=== PATIENT | female | born 1980 | race Caucasian/White ===

== ENCOUNTER 2017-06-22 19:31 | Emergency (ER) | payer OTHER ==
[2017-06-22] MEDS: FAMOTIDINE 20 MG INJ IV (21:39)
[2017-06-22] MEDS: morphine 2 MG INJ IV (21:39)
[2017-06-22] MEDS: ONDANSETRON 4 MG INJ IV (21:39)
[2017-06-22] MEDS: SOD CHLORIDE 0.9% 1,000 ML IV (21:40)
[2017-06-22 21:45] LABS: ADD MAN DIFF? NO
[2017-06-22 21:49] LABS: BASOPHIL # 0.1 10^3/ul (0.0-0.1); BASOPHILS % 0.6 % (0.0-2.0); EOSINOPHILS # 0.3 10^3/ul (0.0-0.5); EOSINOPHILS % 1.7 % (0.0-7.0); HEMATOCRIT 39.7 % (37.0-47.0); HEMOGLOBIN 13.8 g/dl (12.0-16.0); LYMPHOCYTES # 3.2 10^3/ul (0.8-2.9); LYMPHOCYTES % 21.5 % (15.0-51.0); MEAN CORPUSCULAR HEMOGLOBIN 29.8 pg (29.0-33.0); MEAN CORPUSCULAR HGB CONC 34.8 g/dl (32.0-37.0); MEAN CORPUSCULAR VOLUME 85.7 fl (82.0-101.0); MEAN PLATELET VOLUME 9.9 fl (7.4-10.4); MONOCYTE # 0.8 10^3/ul (0.3-0.9); MONOCYTES % 5.3 % (0.0-11.0); NEUTROPHIL # 10.3 10^3/ul (1.6-7.5); NEUTROPHILS % 70.6 % (39.0-77.0); PLATELET COUNT 394 10^3/UL (140-415); RED BLOOD COUNT 4.63 10^6/ul (4.20-5.40); RED CELL DISTRIBUTION WIDTH 12.6 % (11.5-14.5)
[2017-06-22 21:49] LABS: WHITE BLOOD COUNT 14.6 10^3/ul (4.8-10.8)
[2017-06-22 21:52] LABS: URINE BLOOD (Dip) POC 2+ (NEGATIVE); URINE GLUCOSE (Dip) POC Negative (NEGATIVE); URINE KETONES (Dip) POC Negative (NEGATIVE); URINE LEUKOCYTE EST (Dip) POC Negative (NEGATIVE); URINE NITRITE (Dip) POC Negative (NEGATIVE); URINE TOTAL PROTEIN POC Trace (NEGATIVE)
[2017-06-22 22:10] LABS: ALANINE AMINOTRANSFERASE 27 IU/L (13-69); ALBUMIN 4.4 g/dl (3.3-4.9); ALBUMIN/GLOBULIN RATIO 1.41; ALKALINE PHOSPHATASE 56 IU/L (42-121); ANION GAP 16 (8-16); ASPARTATE AMINO TRANSFERASE 17 IU/L (15-46); BILIRUBIN,INDIRECT 0.3 mg/dl (0-1.1); BILIRUBIN,TOTAL 0.3 mg/dl (0.2-1.3); BLOOD UREA NITROGEN 12 mg/dl (7-20); CALCIUM 9.6 mg/dl (8.4-10.2); CARBON DIOXIDE 28 mmol/L (21-31); CHLORIDE 103 mmol/L (97-110); CREATININE 0.69 mg/dl (0.44-1.00); GLUCOSE 89 mg/dl (70-220); LIPASE 96 U/L (23-300); POTASSIUM 3.5 mmol/L (3.5-5.1); SODIUM 143 mmol/L (135-144); TOTAL PROTEIN 7.5 g/dl (6.1-8.1)
[2017-06-22] MEDS: KETOROLAC 30 MG INJ IV (23:03)
== END 2017-06-22 23:39 | disposition home or self-care (01) ==
LOC: FTE 19:31
DX: K80.70 Calculus of gallbladder and bile duct without cholecystitis without obstruction (principal)
CPT/HCPCS: 36415; 76705; 80053; 81003; 81025; 83690; 85025; 96374; 96375; 99285-25

== ENCOUNTER 2017-10-02 06:08 | Day surgery (SDC) | payer OTHER ==
[2017-10-02] MEDS ORDERED: DEXAMETHASONE 4 MG/ML 1 ML INJ (06:21)
[2017-10-02] MEDS ORDERED: FENTAnyl 50 MCG/ML VIAL ×2 (06:21→09:12)
[2017-10-02] MEDS ORDERED: GLYCOPYRROLATE 0.4 MG INJ (06:21)
[2017-10-02] MEDS ORDERED: NEOSTIGMINE 3 MG/3 ML SYRINGE (06:21)
[2017-10-02] MEDS ORDERED: PROPOFOL 20 ML (06:21)
[2017-10-02] MEDS ORDERED: LIDOCAINE 2% (SDV) 5 ML INJ (06:21)
[2017-10-02] MEDS ORDERED: ROCURONIUM 50 MG INJ (06:21)
[2017-10-02] MEDS ORDERED: MIDAZOLAM 1 MG/ML 2 ML INJ (06:21)
[2017-10-02] MEDS ORDERED: ONDANSETRON 4 MG INJ (06:22)
[2017-10-02] MEDS ORDERED: NALOXONE (0.4 MG/ML) INJ IV (06:30)
[2017-10-02] MEDS ORDERED: BUPIVACAINE 0.25% (MPF) 30 ML INJ (07:10)
[2017-10-02] MEDS: BUPIVACAINE 0.5%/EPI (SDV) 30 ML INJ (08:08)
[2017-10-02] MEDS ORDERED: ONDANSETRON 4 MG INJ IV (09:00)
[2017-10-02] MEDS ORDERED: OXYCODONE/ACETAMINOPHEN (5/325) TAB PO (09:00)
[2017-10-02] MEDS: morphine 2 MG INJ IV (09:05)
[2017-10-02] MEDS: FENTAnyl 50 MCG/ML VIAL IV (09:21)
[2017-10-02] MEDS ORDERED: HYDROmorphONE 0.5 MG/0.5 ML SYG IV ×3 (09:30)
[2017-10-02] MEDS ORDERED: KETOROLAC 30 MG INJ IV (09:30)
[2017-10-02] MEDS ORDERED: FENTAnyl 50 MCG/ML VIAL IV ×2 (09:30)
[2017-10-02] MEDS: OXYCODONE/ACETAMINOPHEN (5/325) TAB PO (10:18)
== END 2017-10-02 12:05 | disposition home or self-care (01) ==
LOC: SDS 06:08
DX: K80.20 Calculus of gallbladder without cholecystitis without obstruction (principal)
CPT/HCPCS: 47562; 88304

== ENCOUNTER 2018-06-10 15:56 | Observation (INO) | payer OTHER ==
[2018-06-10] MEDS: ACETAMINOPHEN 325 MG TAB PO (21:11)
[2018-06-10] MEDS: SOD CHLORIDE 0.9% 500 ML IV (21:19)
[2018-06-10] MEDS: HYDROmorphONE 0.5 MG/0.5 ML SYG IV (23:06)
[2018-06-10 23:14] LABS: ABNORMAL IP MESSAGE 1; HEMATOCRIT 38.1 % (37.0-47.0); MEAN CORPUSCULAR HEMOGLOBIN 29.5 pg (29.0-33.0); MEAN CORPUSCULAR HGB CONC 34.1 g/dl (32.0-37.0); MEAN CORPUSCULAR VOLUME 86.4 fl (82.0-101.0); MEAN PLATELET VOLUME 9.9 fl (7.4-10.4); PLATELET COUNT 335 10^3/UL (140-415); RED BLOOD COUNT 4.41 10^6/ul (4.20-5.40); RED CELL DISTRIBUTION WIDTH 13.1 % (11.5-14.5)
[2018-06-10 23:21] LABS: ADD MAN DIFF? YES; POSITIVE DIFF @See below
[2018-06-10 23:22] LABS: PATH REVIEW? YES
[2018-06-11] MEDS: LACTATED RINGER'S 1,000 ML IV ×2 (00:22→07:40)
[2018-06-11 00:26] LABS: HEMATOCRIT 38.8 % (37.0-47.0); HEMOGLOBIN 13.2 g/dl (12.0-16.0)
[2018-06-11] MEDS ORDERED: METHYLERGONOVINE 0.2 MG INJ IM (00:30)
[2018-06-11 02:51] LABS: BAND NEUTROPHILS #M 3.7 10^3/ul (0.0-0.6); BAND NEUTROPHILS % (M) 12 % (0-4); BASOPHIL #M 0.3 10^3/ul (0.0-0.0); BASOPHILS % (M) 1 % (0-2); GIANT THROMBO% (M) 1 % (0-0); LYMPHOCYTES #M 1.5 10^3/ul (0.8-2.9); LYMPHOCYTES % (M) 5 % (15-51); PLATELET ESTIMATE NORMAL; PROMYELOCYTES #M 0.3 10^3/ul (0-0); PROMYELOCYTES % (M) 1 % (0-0); REACTIVE LYMPHOCYTES #M 0.3 10^3/ul (0.0-0.0); REACTIVE LYMPHOCYTES% (M) 1 % (0-0); SEG NEUT #M 25.9 10^3/ul (1.6-7.5); SEGMENTED NEUTROPHILS (M) % 80 % (39-77); SMUDGE%M 5 % (0-0)
[2018-06-11] MEDS: SOD CHLORIDE 0.9% 1,000 ML IV (03:55)
[2018-06-11] MEDS: HYDROCODONE/APAP (10/325) TAB PO (03:55)
[2018-06-11] MEDS: SOD CHLORIDE 0.9% 500 ML IV (05:53)
[2018-06-11] MEDS ORDERED: PROPOFOL 200 MG INJ (07:00)
[2018-06-11] MEDS ORDERED: LIDOCAINE 2% (SDV) 5 ML INJ (07:00)
[2018-06-11] MEDS ORDERED: PHENYLephrine (100 MCG/ML) 5ML SYG (07:00)
[2018-06-11] MEDS ORDERED: DESFLURANE 15 MIN (07:00)
[2018-06-11] MEDS: morphine 2 MG INJ IV (08:01)
[2018-06-11] MEDS: ONDANSETRON 4 MG INJ IV (08:01)
[2018-06-11] MEDS: DOXYCYCLINE 100 MG in SOD CHLORIDE 0.9% 250 ML IVPB (08:50)
[2018-06-11] MEDS ORDERED: MIDAZOLAM 1 MG/ML 2 ML INJ (11:50)
[2018-06-11] MEDS ORDERED: FENTAnyl 50 MCG/ML VIAL (11:50)
[2018-06-11] MEDS ORDERED: METOCLOPRAMIDE 10 MG INJ (11:51)
[2018-06-11] MEDS ORDERED: ONDANSETRON 4 MG INJ (11:51)
[2018-06-11] MEDS ORDERED: FAMOTIDINE 20 MG INJ (11:51)
[2018-06-11] MEDS ORDERED: MEPERIDINE 25 MG INJ IV (12:00)
[2018-06-11] MEDS ORDERED: LABETALOL HCL 20MG INJ IV (12:00)
[2018-06-11] MEDS ORDERED: ALBUTEROL 0.083% (NEB) 2.5 MG/3 ML AMP HHN (12:00)
[2018-06-11] MEDS ORDERED: OXYCODONE/ACETAMINOPHEN (5/325) TAB PO ×2 (12:00)
[2018-06-11] MEDS ORDERED: HYDROmorphONE 1 MG/5 ML IV SYRINGE IV ×2 (12:00)
[2018-06-11] MEDS ORDERED: DIPHENHYDRAMINE 50 MG INJ IV (12:00)
[2018-06-11] MEDS ORDERED: FENTAnyl 50 MCG/ML VIAL IV ×2 (12:00)
[2018-06-11] MEDS ORDERED: ONDANSETRON 4 MG INJ IV (12:00)
[2018-06-11] MEDS ORDERED: morphine (1 MG/ML) 10ML SYRINGE IV ×2 (12:00)
[2018-06-11] MEDS ORDERED: VASOPRESSIN 20 UNITS INJ (12:08)
[2018-06-11] MEDS ORDERED: OXYTOCIN 10 UNIT INJ (12:09)
[2018-06-11] MEDS ORDERED: RANITIDINE 150 MG TAB PO (13:00)
[2018-06-11] MEDS ORDERED: IBUPROFEN 400 MG TAB PO (13:00)
[2018-06-11] MEDS ORDERED: DOXYCYCLINE 100 MG TAB (13:11)
[2018-06-11] MEDS: DOXYCYCLINE 100 MG TAB PO (13:12)
[2018-06-11] MEDS: HYDROCODONE/APAP (5/325) TAB PO (13:17)
== END 2018-06-11 17:15 | disposition home or self-care (01) ==
LOC: E/R 15:56 → 5EC 23:43
DX: O03.4 Incomplete spontaneous abortion without complication (principal)
CPT/HCPCS: 36415; 76801; 76817; 81025; 84703; 85014; 85018; 85025; 86850; 86900; 86901; 88305; 96361; 96374; 99285-25; G0378